=== PATIENT | female | born 1995 ===

== ENCOUNTER 2020-10-25 19:00 | Day surgery (SDC) | payer SELFPAY ==
[~2020-10-25 19:00] MED LIST: Dexamethasone 20 MG/5 ML VIAL ONE; Glycopyrrolate 0.2 MG/ML 5 ML SYRINGE ONE; Ondansetron PF 4 MG/2 ML Vial ONE; PROPOFOL 200 MG/20 ML VIAL ONE; Rocuronium Bromide 10 MG/ML (10ML VIAL) ONE; Succinylcholine 200 MG/10 ml SYRINGE FS ONE
[2020-10-25] MEDS ORDERED: Lidocaine 1% w/Epinephrine 1:100K 20 ML VIAL ONE (21:11)
[2020-10-25] MEDS ORDERED: Bupivacaine 0.25% HCL 30 ML VIAL ONE (21:11)
[2020-10-25] MEDS ORDERED: Midazolam HCl 2 mg/2 ml Vial ONE (21:36)
[2020-10-25] MEDS ORDERED: Fentanyl 100 MCG/2 ML VIAL ONE ×2 (21:36→23:24)
--- NOTE | 2020-10-26 01:06 | OP ---
DATE OF PROCEDURE: 10/25/2020 CHIEF COMPLAINT: Right lower quadrant abdominal pain. PREOPERATIVE DIAGNOSIS: Acute appendicitis. PROCEDURE PERFORMED: Laparoscopic appendectomy. INDICATIONS: A 25-year-old female with a 24-hour history of right lower quadrant pain, associated with nausea, leukocytosis and a CT scan showing appendicitis. FINDINGS: Acute suppurative, nonperforated appendicitis. DESCRIPTION OF PROCEDURE: After informed consent was obtained, the patient was taken to the operating room, given general endotracheal anesthesia, placed in supine position. Abdomen was prepped and draped in the usual fashion. Local anesthesia was infiltrated subcutaneously and deep. A subumbilical incision was performed. Subcu divided sharply. The fascia grasped, then two stay sutures of 0 Vicryl placed through each side of midline. Midline incised. Digital palpation revealed no local adhesions. A blunt 12 mm trocar inserted. Pneumoperitoneum was created to a pressure of 15 mmHg. Under direct vision, two 5 mm ports were placed, one suprapubic, one right lateral abdomen. The cecum was found. The appendix was somewhat retrocecal. It was underneath the peritoneum posterolateral. The cecum was mobilized. The appendix found. The mesoappendix divided with LigaSure. The base of appendix was divided with a linear 45 mm white load stapler, was placed in an endosac and removed from the abdomen in the endosac. Hemostasis was assured. The abdomen irrigated. Irrigation fluid removed. Trocars and retractors removed. The fascia closed with interrupted 0 Vicryl suture. The skin closed with interrupted 4-0 Rapide. Dermabond applied. The patient tolerated the procedure well, transferred to Recovery in good condition. Sponge and needle count verified, correct x2. Job ID: [id number]
--- NOTE | 2020-10-26 01:10 | HP ---
CHIEF COMPLAINT: Right lower quadrant abdominal pain. HISTORY OF PRESENT ILLNESS: The patient is a 25-year-old female, with a 24-hour history of right lower quadrant pain, associated with nausea. No vomiting. No fever. CT scan shows appendicitis. PAST MEDICAL HISTORY: Otherwise healthy. PAST SURGICAL HISTORY: None. MEDICATIONS: No medications. ALLERGIES: NO KNOWN DRUG ALLERGIES. SOCIAL HISTORY: Recent grad. No tobacco. Rare alcohol. FAMILY HISTORY: Diabetes and CVA. PHYSICAL EXAMINATION: VITAL SIGNS: Temperature 97.1, pulse 86, and blood pressure 125/67. GENERAL: Well-developed, well-nourished female, in no apparent distress, lying still. HEENT: Unremarkable. LUNGS: Clear. HEART: Regular rate and rhythm. ABDOMEN: Obese, soft. Tender to percussion, right lower quadrant. Positive Rovsing sign. EXTREMITIES: Unremarkable. LABORATORY DATA: Her COVID test is negative. CT scan shows appendicitis. HCG negative. Her white count is 10.5, H and H of 14 and 40, and platelet count 194. Liver function tests okay. ASSESSMENT: Acute appendicitis. PLAN: Laparoscopic appendectomy. CONSENT: I have discussed planned procedure as well as risk of bleeding, infection, injury to bowel and bladder, need to open. She understands and gives informed consent. Job ID: [id number]
== END 2020-10-26 00:26 | disposition home or self-care (01) ==
LOC: SDC/OP 19:00
PROVIDERS: ATTEND Surgery
PROC: 0DTJ4ZZ Resection of Appendix, Percutaneous Endoscopic Approach (ICD-10-PCS; principal; 2020-10-25)
DX: K35.80 Unspecified acute appendicitis (principal)
CPT/HCPCS: 88304; J1100; J2250; J2405; J2704; J3010; S0020